=== PATIENT | female | born 1950 | race Caucasian/White ===

== ENCOUNTER 2018-07-30 07:16 | Day surgery (SDC) | payer OTHER ==
[2018-07-30] MEDS ORDERED: TRAMADOL HCL50 MG PO (12:14)
[2018-07-30] MEDS ORDERED: NABUMETONE750 MG PO (12:15)
== END 2018-07-30 13:55 | disposition home or self-care (01) ==
LOC: CIR.AMB 07:16
DX: T84.89XA Other specified complication of internal orthopedic prosthetic devices, implants and grafts, initial encounter (principal)